=== PATIENT | male | born 1970 | race Caucasian/White ===

== ENCOUNTER 2017-04-27 09:57 | Emergency (ER) | payer OTHER ==
[2017-04-27 10:09] VITALS: BMI 30.7
[2017-04-27 10:25] VITALS: RESP 18; TEMP 98.4; O2SAT 98
--- NOTE | 2017-04-27 10:40 | ED PDOC ---
Arrival/HPI <Mitesh Calvin - Last Filed: 04/27/17 11:06> - General Historian: Patient - History of Present Illness Time/Duration: Other (2 years, worsening over past month) Symptom Onset: Gradual Symptom Course: Worsening Quality: Throbbing Severity Level: Mild, Moderate, Severe Context: Work <Ondina Sanchez - Last Filed: 04/27/17 11:56> - General Chief Complaint: Upper Extremity Problem/Injury Time Seen by Provider: 04/27/17 10:01 - History of Present Illness Narrative History of Present Illness (Text): 04/27/17 10:17 46 M w/ PMH sig for HTN, HLD evaluated for Bilateral hand/foot numbness x 2 yrs. Pt reports numbness and tingling to both upper and lower distal phalanges b /l, recently worsened over the past month with change in cold exposure. Sensation is non-radiating "rubbery", and constant, has pain with cold temperatures. Admits to nausea with pain and claudications. Denies F & C, V/D/C , SOB, CP or diaphoresis. PMH: HLD, HTN PSH: None All: NKDA SH: Denies any EtOH, illicit drugs or tobbacco use. 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 PMD:Denies (Ondina Sanchez) Past Medical History - Provider Review Nursing Documentation Reviewed: Yes - Cardiac Hx Hypertension: Yes - Pulmonary Hx Respiratory Disorders: No - Neurological Hx Neurological Disorder: No - HEENT Hx HEENT Disorder: No - Renal Hx Renal Disorder: No - Endocrine/Metabolic Hx Endocrine Disorders: No - Hematological/Oncological Hx Blood Disorders: No - Integumentary Hx Dermatological Disorder: No - Musculoskeletal/Rheumatological Hx Musculoskeletal Disorders: No - Gastrointestinal Hx Gastrointestinal Disorders: No - Genitourinary/Gynecological Hx Genitourinary Disorders: No - Psychiatric Hx Psychophysiologic Disorder: No Hx Substance Use: No - Anesthesia Hx Anesthesia: No Hx Anesthesia Reactions: No Hx Malignant Hyperthermia: No <Ondina Sanchez - Last Filed: 04/27/17 11:56> Family/Social History - Physician Review Nursing Documentation Reviewed: Yes Family/Social History: No Known Family HX Smoking Status: Never Smoked Hx Alcohol Use: No Hx Substance Use: No <Ondina Sanchez - Last Filed: 04/27/17 11:56> Allergies/Home Meds <Mitesh Calvin - Last Filed: 04/27/17 11:06> <Ondina Sanchez - Last Filed: 04/27/17 11:56> Allergies/Adverse Reactions: Allergies No Known Allergies Allergy (Verified 04/27/17 10:14) Review of Systems - Review of Systems Constitutional: Normal. absent: Fevers Eyes: Normal. absent: Vision Changes ENT: Normal. absent: Sore Throat Respiratory: Normal. absent: SOB Cardiovascular: Normal. absent: Chest Pain, Palpitations Gastrointestinal: Nausea (with pain). absent: Normal, Abdominal Pain, Constipation, Diarrhea, Vomiting, Hematochezia, Hematemesis, Food Intolerance Genitourinary Male: Normal. absent: Dysuria Musculoskeletal: Other (numbness of hands/feet). absent: Normal Skin: Normal. absent: Cellulitis Neurological: Normal. absent: Headache <SanchezPaul fieldne - Last Filed: 04/27/17 11:56> Physical Exam Vital Signs Reviewed: Yes Temperature: Afebrile Blood Pressure: Normal Pulse: Regular Respiratory Rate: Normal Appearance: Positive for: Well-Appearing, Non-Toxic, Comfortable Pain Distress: None Mental Status: Positive for: Alert and Oriented X 3 - Systems Exam Head: Present: Atraumatic, Normocephalic Extroacular Muscles: Present: EOMI Conjunctiva: Present: Normal Mouth: Present: Moist Mucous Membranes Nose (External): Present: Atraumatic Neck: Present: Normal Range of Motion Respiratory/Chest: Present: Clear to Auscultation, Good Air Exchange. No: Respiratory Distress, Accessory Muscle Use Cardiovascular: Present: Regular Rate and Rhythm, Normal S1, S2. No: Murmurs Abdomen: Present: Normal Bowel Sounds. No: Tenderness, Distention, Peritoneal Signs Back: Present: Normal Inspection. No: CVA Tenderness, Paraspinal Tenderness Upper Extremity: Present: Tenderness (over distal phalanx Bilaterally), Temperature Abnormalties (fingers of hands are grossly cold). No: Normal Inspection, Cyanosis, Edema Lower Extremity: Present: Normal ROM, Tenderness (over distal metacarpals), Temperature Abnormalties (bilat toes are grossly cold), Neurovascularly Intact. No: Normal Inspection, Edema Neurological: Present: GCS=15, CN II-XII Intact, Speech Normal Skin: Present: Dry, Cold (fingers/toes bilat), Other (distal fingers and toes are slightly darker). No: Warm, Rashes, Normal Color Psychiatric: Present: Alert, Oriented x 3, Normal Insight, Normal Concentration <Ondina Sanchez - Last Filed: 04/27/17 11:56> Vital Signs Temp Pulse Resp BP Pulse Ox 04/27/17 11:10 69 18 148/79 98 04/27/17 09:57 98.4 F 72 18 150/88 98 Medical Decision Making - Lab Interpretations I have reviewed the lab results: Yes <Mitesh Calvin - Last Filed: 04/27/17 11:06> - Lab Interpretations I have reviewed the lab results: Yes <Ondina Sanchez - Last Filed: 04/27/17 11:56> ED Course and Treatment: 04/27/17 11:06 In agreement with resident note, which includes further HPI details. Patient was seen and evaluated with resident, came up with plan and treatment together. (N.R) (Mitesh Calvin) 04/27/17 10:47 Pt seen/evaluated, will order labs to check for electrolytes. Case DW ED attending. 04/27/17 11:45 Labs negative- will refer pt to PMD. (Ondina Sanchez) - Lab Interpretations Lab Results: 04/27/17 11:10 04/27/17 11:10 Lab Results 04/27/17 11:10: Sodium 140, Potassium 4.0, Chloride 103, Carbon Dioxide 29, Anion Gap 12, BUN 18, Creatinine 1.1, Est GFR ( Amer) > 60, Est GFR (Non- Af Amer) > 60, Random Glucose 88, Calcium 9.0, Total Bilirubin 1.5 H, AST 35, ALT 42, Alkaline Phosphatase 43, Total Protein 7.0, Albumin 4.0, Globulin 3.1, Albumin/Globulin Ratio 1.3 04/27/17 11:10: WBC 3.3 L, RBC 5.09, Hgb 15.5, Hct 44.2, MCV 86.8, MCH 30.5, MCHC 35.1, RDW 12.3, Plt Count 159, MPV 8.8, Gran % 42.7 L, Lymph % (Auto) 32.3 , [place] % (Auto) 18.1 H, Eos % (Auto) 6.0 H, Baso % (Auto) 0.9, Gran # 1.41, Lymph # 1.1 L, [place] # 0.6, Eos # 0.2, Baso # 0.03 - Medication Orders Current Medication Orders: Discontinued Medications Gabapentin (Neurontin) 100 mg PO ONCE ONE PRN Reason: Protocol Stop: 04/27/17 10:46 Last Admin: 04/27/17 11:15 Dose: 100 mg - PA / FIELD SERVICE TECH / Resident Statement MD/DO has reviewed & agrees with the documentation as recorded. MD/DO has examined the patient and agrees with the treatment plan. - Scribe Statement The provider has reviewed the documentation as recorded by the Scribe <Mitesh Calvin - Last Filed: 04/27/17 11:06> <Ondina Sanchez - Last Filed: 04/27/17 11:56> - Scribe Statement Rachel Cast Provider Scribe Attestation: All medical record entries made by the Scribe were at my direction and personally dictated by me. I have reviewed the chart and agree that the record accurately reflects my personal performance of the history, physical exam, medical decision making, and the department course for this patient. I have also personally directed, reviewed, and agree with the discharge instructions and disposition. (Mitesh Calvin) Disposition/Present on Arrival <Mitesh Calvin - Last Filed: 04/27/17 11:06> - Present on Arrival Any Indicators Present on Arrival: No History of DVT/PE: No History of Uncontrolled Diabetes: No Urinary Catheter: No History of Decub. Ulcer: No History Surgical Site Infection Following: None - Disposition Have Diagnosis and Disposition been Completed?: Yes Disposition Time: 11:46 Patient Plan: Discharge <Ondina Sanchez - Last Filed: 04/27/17 11:56> - Disposition Diagnosis: Raynaud disease Disposition: HOME/ ROUTINE Patient Problems: Current Active Problems Problem Status Onset Raynaud disease Acute Condition: STABLE Discharge Instructions (ExitCare): Raynaud Disease (ED) Additional Instructions: Please establish a relationship with a primary care provider so you can be referred to a feed miller for evaluation of possible autoimmune disease. Prescriptions: Gabapentin [Neurontin] 100 mg PO TID #21 capsule Referrals: [facility] [Outside] - Follow up with primary [facility] [Outside] - Follow up with primary Forms: [employer] Connect ([place]ian), WORK NOTE
[2017-04-27 11:11] VITALS: BP 148/79; PULSE 69
[2017-04-27 11:25] LABS: BASO # 0.03 K/mm3 (0.0-2.0); BASO % 0.9 % (0.0-3.0); EOS # 0.2 (0.0-0.7); GRAN # 1.41 (1.4-6.5); GRAN % 42.7 % (50.0-68.0); HEMATOCRIT 44.2 % (42.0-52.0); LYMPH # 1.1 (1.2-3.4); LYMPH % 32.3 % (22.0-35.0); MEAN CELL VOLUME 86.8 fl (80.0-105.0); MEAN CORPUSCULAR HEMOGLOBIN 30.5 pg (25.0-35.0); MEAN CORPUSCULAR HGB CONC 35.1 g/dl (31.0-37.0); MEAN PLATELET VOLUME 8.8 fl (7.0-11.0); MONO # 0.6 (0.1-0.6); MONO % 18.1 % (1.0-6.0); RED CELL DISTRIBUTION WIDTH 12.3 % (11.5-14.5); WHITE BLOOD COUNT 3.3 10^3/ul (4.5-11.0)
[2017-04-27 11:34] LABS: ALB/GLOB RATIO 1.3 (1.1-1.8); ALKALINE PHOSPHATASE 43 U/L (38-126); ALT/SGPT 42 U/L (7-56); AST/SGOT 35 U/L (17-59); BILIRUBIN,TOTAL 1.5 mg/dL (0.2-1.3); BLOOD UREA NITROGEN 18 mg/dL (7-21); CARBON DIOXIDE 29 mmol/L (21-33); CHLORIDE 103 mmol/L (98-107); GFR AFRICAN-AMERICAN > 60; GLUCOSE,RANDOM 88 mg/dL (70-110); SODIUM 140 mmol/L (132-148)
== END 2017-04-27 12:02 | disposition home or self-care (01) ==
LOC: ED 09:57
DX: I73.00 Raynaud's syndrome without gangrene (principal); E78.5 Hyperlipidemia, unspecified; I10 Essential (primary) hypertension